=== PATIENT | male | born 1970 | race African-American/Black ===

== ENCOUNTER 2017-02-22 17:38 | Emergency (ER) | payer OTHER ==
[~2017-02-22] VITALS: Ht 182.9 cm; Wt 90.7 kg
[~2017-02-22 17:38] MED LIST: CARVEDILOL12.5 MG PO; ELIQUIS5 MG PO; FLECAINIDE ACET50 M1 PO; LIPITOR10 MG PO
[2017-02-22 17:40] VITALS: BP 165/112
[2017-02-22] MEDS ORDERED: MEN'S MULTI-VI1 EACH PO (17:42)
[2017-02-22] MEDS ORDERED: ASPIRIN325 PO (17:42)
[2017-02-22] MEDS ORDERED: PROTONIX40 M1 PO (17:43)
[2017-02-22] MEDS ORDERED: FLONASE 0.05%50 MCG NASAL (19:03)
== END 2017-02-22 19:13 | disposition home or self-care (01) ==
LOC: ER 17:38
DX: R51 Headache (principal); J06.9 Acute upper respiratory infection, unspecified; I10 Essential (primary) hypertension; K21.9 Gastro-esophageal reflux disease without esophagitis; I48.91 Unspecified atrial fibrillation; Z85.528 Personal history of other malignant neoplasm of kidney; Z77.22 Contact with and (suspected) exposure to environmental tobacco smoke (acute) (chronic); Z88.6 Allergy status to analgesic agent; Z91.040 Latex allergy status

== ENCOUNTER 2017-12-17 12:45 | Emergency (ER) | payer BC, OTHER ==
[~2017-12-17] VITALS: Ht 182.9 cm; Wt 127.0 kg
[~2017-12-17 12:45] MED LIST changes: +ASPIRIN325 PO; +FLONASE 0.05%50 MCG NASAL; +MEN'S MULTI-VI1 EACH PO; +PROTONIX40 M1 PO
[2017-12-17] MEDS ORDERED: PRADAXA150 MG PO (13:37)
[2017-12-17] MEDS ORDERED: ACETAMINOPHEN-1 EAC1 PO (13:53)
[2017-12-17] MEDS ORDERED: PREDNISONE 20 M20 MG PO (13:53)
[2017-12-17 14:55] VITALS: BP 146/86
== END 2017-12-17 14:57 | disposition home or self-care (01) ==
LOC: ER 12:45
DX: M54.40 Lumbago with sciatica, unspecified side (principal); M25.551 Pain in right hip; I10 Essential (primary) hypertension; K21.9 Gastro-esophageal reflux disease without esophagitis; I48.91 Unspecified atrial fibrillation; Z85.528 Personal history of other malignant neoplasm of kidney; F17.210 Nicotine dependence, cigarettes, uncomplicated; Z91.040 Latex allergy status

== ENCOUNTER 2017-12-28 19:03 | Emergency (ER) | payer OTHER ==
[~2017-12-28] VITALS: Ht 182.9 cm; Wt 131.5 kg
--- NOTE | ~2017-12-28 | EKG ---
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 [place] : 1970 Requested By: Manan Stevens Order Number: [id number] MD: Adelso Muir Measurements Intervals [place] Rate: 100 P: 32 PA: 159 QRS: -14 QRSD: 89 T: 10 QT: 348 QTc: 449 Interpretive Statements Sinus tachycardia Probable left atrial enlargement Probable left ventricular hypertrophy Artifact in lead(s) I,III,aVR,aVL,aVF Compared to ECG 10/25/2016 20:53:27 Atrial premature complex(es) no longer present Electronically Signed On 12-28-2017 20:42:08 CDT by Adelso Muir [email or web address] <ELECTRONICALLY SIGNED> By: Adelso Muir MD 12/28/172041 29 29 Adelso Muir MD /EPI
[~2017-12-28 19:03] MED LIST changes: +ACETAMINOPHEN-1 EAC1 PO; +PRADAXA150 MG PO; +PREDNISONE 20 M20 MG PO
[2017-12-28] MEDS ORDERED: IBUPROFEN 600600 M1 PO (20:52)
[2017-12-28 21:34] VITALS: BP 139/93
== END 2017-12-28 21:39 | disposition home or self-care (01) ==
LOC: ER 19:03
DX: S09.90XA Unspecified injury of head, initial encounter (principal); M54.2 Cervicalgia; I10 Essential (primary) hypertension; E78.5 Hyperlipidemia, unspecified; I48.91 Unspecified atrial fibrillation; K21.9 Gastro-esophageal reflux disease without esophagitis; F17.210 Nicotine dependence, cigarettes, uncomplicated; Z90.5 Acquired absence of kidney; Z85.528 Personal history of other malignant neoplasm of kidney; Z91.040 Latex allergy status; Z88.6 Allergy status to analgesic agent; Y00.XXXA Assault by blunt object, initial encounter; Y92.89 Other specified places as the place of occurrence of the external cause; Y93.89 Activity, other specified; Y99.8 Other external cause status

== ENCOUNTER 2018-01-19 19:49 | Emergency (ER) | payer BC, OTHER ==
[~2018-01-19] VITALS: Ht 180.3 cm; Wt 134.3 kg
[~2018-01-19 19:49] MED LIST changes: +IBUPROFEN 600600 M1 PO
[2018-01-19 19:51] VITALS: BP 144/113
[2018-01-19] MEDS ORDERED: NORCO 5-325 TA1 EACH PO (19:56)
[2018-01-19] MEDS ORDERED: IBUPROFEN 800800 M1 PO (19:56)
[2018-01-19] MEDS ORDERED: KEFLEX500 M1 PO (22:12)
== END 2018-01-20 00:12 | disposition home or self-care (01) ==
LOC: ER 19:49
DX: S41.111A Laceration without foreign body of right upper arm, initial encounter (principal); W25.XXXA Contact with sharp glass, initial encounter; Y93.89 Activity, other specified; Y92.89 Other specified places as the place of occurrence of the external cause; Y99.8 Other external cause status; I10 Essential (primary) hypertension; I48.91 Unspecified atrial fibrillation; K21.9 Gastro-esophageal reflux disease without esophagitis; M54.30 Sciatica, unspecified side; Z85.528 Personal history of other malignant neoplasm of kidney; F17.210 Nicotine dependence, cigarettes, uncomplicated; Z91.040 Latex allergy status; Z88.8 Allergy status to other drugs, medicaments and biological substances

== ENCOUNTER 2018-02-02 09:31 | Emergency (ER) | payer BC, OTHER ==
[~2018-02-02] VITALS: Ht 180.3 cm; Wt 134.3 kg
[~2018-02-02 09:31] MED LIST changes: +IBUPROFEN 800800 M1 PO; +KEFLEX500 M1 PO; +NORCO 5-325 TA1 EACH PO
[2018-02-02 09:41] VITALS: BP 110/87
[2018-02-02] MEDS ORDERED: NORCO 5-325 TA1 EACH PO (10:43)
== END 2018-02-02 11:10 | disposition home or self-care (01) ==
LOC: ER 09:31
DX: M76.61 Achilles tendinitis, right leg (principal); S41.111D Laceration without foreign body of right upper arm, subsequent encounter; F17.210 Nicotine dependence, cigarettes, uncomplicated; I48.91 Unspecified atrial fibrillation; I10 Essential (primary) hypertension; K21.9 Gastro-esophageal reflux disease without esophagitis; Z85.528 Personal history of other malignant neoplasm of kidney; Z90.5 Acquired absence of kidney; Z91.040 Latex allergy status; Z88.6 Allergy status to analgesic agent; X58.XXXD Exposure to other specified factors, subsequent encounter

== ENCOUNTER 2018-04-09 10:59 | Emergency (ER) | payer BC, OTHER ==
[~2018-04-09] VITALS: Ht 182.9 cm; Wt 127.5 kg
[~2018-04-09 10:59] MED LIST changes: +ASPIR 8181 MG PO
[2018-04-09] MEDS ORDERED: WELLBUTRIN SR150 MG PO (11:08)
[2018-04-09] MEDS ORDERED: NORVASC5 MG PO (11:08)
[2018-04-09] MEDS ORDERED: HYDROCODONE-AP1 EAC6 PO (12:13)
== END 2018-04-09 12:48 | disposition home or self-care (01) ==
LOC: ER 10:59
DX: M25.461 Effusion, right knee (principal); F17.210 Nicotine dependence, cigarettes, uncomplicated; I48.91 Unspecified atrial fibrillation; K21.9 Gastro-esophageal reflux disease without esophagitis; I10 Essential (primary) hypertension; Z88.6 Allergy status to analgesic agent; Z91.040 Latex allergy status; Z85.528 Personal history of other malignant neoplasm of kidney; Z90.5 Acquired absence of kidney

== ENCOUNTER 2018-04-13 12:32 | Emergency (ER) | payer BC, OTHER ==
[~2018-04-13] VITALS: Ht 182.9 cm; Wt 122.9 kg
--- NOTE | ~2018-04-13 | EKG ---
[place] [address] [facility] [email or web address] [address] ELECTROCARDIOGRAM REPORT Name: KINGLORENE Blakely Room #: [facility] Freeman#: [id number] Admission: 04/13/18 Attend Phys: Discharge: Date of : 68 Report #: [id number] THIS REPORT FOR: //name// [facility] Test Date: 2018-04-13 Test Time: 14:13:00 Pat Name: LORENE BLANCO Department: Room: Gender: M Rn Recovery: : 1970 Requested By: Julita Syed Order Number: [id number] MD: Measurements Intervals [place] Rate: 83 P: 35 ND: 186 QRS: -19 QRSD: 106 T: 6 QT: 400 QTc: 470 Interpretive Statements Sinus rhythm Probable left atrial enlargement Left ventricular hypertrophy Compared to ECG 03/16/2018 10:12:12 Left ventricular hypertrophy now present [email or web address] By: 12 141 Epiphany MD Abdelrahman /EPI
--- NOTE | ~2018-04-13 | EKG ---
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
[~2018-04-13 12:32] MED LIST changes: +HYDROCODONE-AP1 EAC6 PO; +NORVASC5 MG PO; +WELLBUTRIN SR150 MG PO
[2018-04-13 13:08] LABS: ABSOLUTE NEUTROPHILS 3.8 thou/uL (1.4-8.2); EOSINOPHILS 1.6 % (0.0-3.0); HEMATOCRIT 44.3 % (42.0-52.0); HEMOGLOBIN 15.8 gm/dL (14.0-18.0); LYMPHOCYTES 31.7 % (24.0-44.0); MCH 30.7 pg (26.0-34.0); MCHC 35.8 g/dL (28.0-37.0); MCV 85.8 fL (80.0-100.0); MONOCYTES 7.2 % (1.0-8.0); PLATELET COUNT 230 thou/uL (150-400); POLYS 58.5 % (36.0-66.0); RBC 5.17 mil/uL (4.50-6.00); RDW 15.3 % (10.5-14.5); WBC 6.4 thou/uL (4.0-11.0)
[2018-04-13 13:14] LABS: ANION GAP 11 mmol/L (7-16); BUN 16 mg/dL (7-18); CALCIUM 9.7 mg/dL (8.5-10.1); CHLORIDE 100 mmol/L (98-107); CO2 25 mmol/L (21-32); CREATININE 1.6 mg/dL (0.7-1.3); GLUCOSE 152 mg/dL (74-106); SODIUM 136 mmol/L (136-145)
[2018-04-13 13:24] LABS: ALBUMIN 4.1 g/dL (3.4-5.0); LIPASE 324 U/L (73-393); SGOT 21 U/L (15-37); SGPT 28 U/L (30-65); TOTAL BILIRUBIN 0.5 mg/dL (<0.1-1.0); TOTAL PROTEIN 8.2 g/dL (6.4-8.2); TROPONIN-I <0.06 ng/mL (<0.06)
[2018-04-13] MEDS ORDERED: NORCO 5-325 TA1 EACH PO (15:10)
== END 2018-04-13 15:38 | disposition home or self-care (01) ==
LOC: ER 12:32
PROVIDERS: Nurse Practitioner Family
DX: R07.89 Other chest pain (principal); M25.571 Pain in right ankle and joints of right foot; G89.29 Other chronic pain; E87.6 Hypokalemia; I48.91 Unspecified atrial fibrillation; I10 Essential (primary) hypertension; K21.9 Gastro-esophageal reflux disease without esophagitis; M54.30 Sciatica, unspecified side; Z90.5 Acquired absence of kidney; F17.210 Nicotine dependence, cigarettes, uncomplicated; Z88.6 Allergy status to analgesic agent; Z91.040 Latex allergy status; Z88.8 Allergy status to other drugs, medicaments and biological substances

== ENCOUNTER 2018-06-10 14:44 | Emergency (ER) | payer BC, OTHER ==
[~2018-06-10] VITALS: Ht 182.9 cm; Wt 122.9 kg
--- NOTE | ~2018-06-10 | EKG ---
[address] [employer] [place] [address] ELECTROCARDIOGRAM REPORT Name: LORENE BLANCO Room #: [facility] Pete#: [id number] Admission: 06/10/18 Attend Phys: Discharge: 06/10/18 Date of : 68 Report #: [id number] THIS REPORT FOR: //name// [facility] ED Test Date: 2018-06-10 Test Time: 16:11:06 Pat Name: LORENE BLANCO Department: Room: Gender: Wool Tamper: MELISSA : 1970 Requested By: Julita Syed Order Number: [id number] MD: Carlitos Barreto Measurements Intervals [place] Rate: 87 P: 28 [place]: 176 QRS: -6 QRSD: 101 T: 4 QT: 377 QTc: 454 Interpretive Statements Sinus rhythm nonspecific T-wave abnormalities Compared to ECG 04/13/2018 14:13:00 Left ventricular hypertrophy no longer present Electronically Signed On 06-11-2018 10:23:36 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
[2018-06-10 15:19] LABS: ABSOLUTE NEUTROPHILS 3.5 thou/uL (1.4-8.2); EOSINOPHILS 2.2 % (0.0-3.0); HEMATOCRIT 44.4 % (42.0-52.0); HEMOGLOBIN 15.4 gm/dL (14.0-18.0); LYMPHOCYTES 33.8 % (24.0-44.0); MCH 30.2 pg (26.0-34.0); MCHC 34.8 g/dL (28.0-37.0); MCV 86.8 fL (80.0-100.0); MONOCYTES 7.2 % (1.0-8.0); PLATELET COUNT 221 thou/uL (150-400); POLYS 55.8 % (36.0-66.0); RBC 5.11 mil/uL (4.50-6.00); RDW 15.1 % (10.5-14.5); WBC 6.4 thou/uL (4.0-11.0)
[2018-06-10 15:26] LABS: CALCIUM 9.6 mg/dL (8.5-10.1); CREATININE 1.4 mg/dL (0.7-1.3); POTASSIUM 3.4 mmol/L (3.5-5.1)
[2018-06-10 15:31] LABS: ALBUMIN 3.9 g/dL (3.4-5.0); TOTAL BILIRUBIN 0.3 mg/dL (<0.1-1.0); TOTAL PROTEIN 8.1 g/dL (6.4-8.2)
[2018-06-10 17:58] LABS: URINE BILIRUBIN NEGATIVE (Negative); URINE BLOOD NEGATIVE (Negative); URINE CLARITY CLEAR; URINE COLOR YELLOW; URINE GLUCOSE-RANDOM* NEGATIVE (Negative); URINE KETONES NEGATIVE (Negative); URINE LEUKOCYTES-REFLEX NEGATIVE (Negative); URINE NITRITE-REFLEX NEGATIVE (Negative); URINE PROTEIN (DIPSTICK) NEGATIVE (Negative); URINE UROBILINOGEN 0.2 E.U./dl (0.2-1.0)
[2018-06-10] MEDS ORDERED: PRILOSEC 20 MG20 MG PO (18:11)
[2018-06-10] MEDS ORDERED: ANUSOL-HC25 MG RECTAL (18:11)
[2018-06-10 18:28] VITALS: BP 111/85
== END 2018-06-10 18:29 | disposition home or self-care (01) ==
LOC: ER 14:44
PROVIDERS: Nurse Practitioner Family
DX: K62.5 Hemorrhage of anus and rectum (principal); R10.13 Epigastric pain; I48.91 Unspecified atrial fibrillation; I10 Essential (primary) hypertension; K21.9 Gastro-esophageal reflux disease without esophagitis; F17.200 Nicotine dependence, unspecified, uncomplicated; Z93.3 Colostomy status; Z86.711 Personal history of pulmonary embolism; Z88.5 Allergy status to narcotic agent; Z88.6 Allergy status to analgesic agent; Z91.040 Latex allergy status

== ENCOUNTER 2018-06-21 19:38 | Emergency (ER) | payer BC, OTHER ==
[~2018-06-21] VITALS: Ht 182.9 cm; Wt 122.9 kg
--- NOTE | ~2018-06-21 | EKG ---
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: [place] : 1970 Requested By: Jayden Laguna Order Number: [id number] MD: Adelso Muir Measurements Intervals [place] Rate: 96 P: 23 IA: 171 QRS: -12 QRSD: 95 T: 16 QT: 359 QTc: 454 Interpretive Statements Sinus rhythm Probable left atrial enlargement Abnormal R-wave progression, late transition Compared to ECG 06/10/2018 16:11:06 No significant changes Electronically Signed On 06-21-2018 21:12:47 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
[~2018-06-21 19:38] MED LIST changes: +ANUSOL-HC25 MG RECTAL; +PRILOSEC 20 MG20 MG PO
[2018-06-21 19:58] LABS: URINE BILIRUBIN NEGATIVE (Negative); URINE BLOOD TRACE (Negative); URINE CLARITY CLEAR; URINE COLOR YELLOW; URINE GLUCOSE-RANDOM* NEGATIVE (Negative); URINE KETONES NEGATIVE (Negative); URINE LEUKOCYTES-REFLEX NEGATIVE (Negative); URINE NITRITE-REFLEX NEGATIVE (Negative); URINE PROTEIN (DIPSTICK) NEGATIVE (Negative); URINE SPECIFIC GRAVITY 1.025 (1.005-1.035); URINE UROBILINOGEN 0.2 E.U./dl (0.2-1.0)
[2018-06-21 21:25] LABS: ABSOLUTE NEUTROPHILS 4.3 thou/uL (1.4-8.2); BASOPHILS 1.1 % (0.0-2.0); HEMATOCRIT 43.4 % (42.0-52.0); HEMOGLOBIN 15.1 gm/dL (14.0-18.0); MCH 30.3 pg (26.0-34.0); MCHC 34.7 g/dL (28.0-37.0); MCV 87.2 fL (80.0-100.0); MONOCYTES 7.8 % (1.0-8.0); PLATELET COUNT 234 thou/uL (150-400); POLYS 57.1 % (36.0-66.0); RBC 4.98 mil/uL (4.50-6.00); WBC 7.6 thou/uL (4.0-11.0)
[2018-06-21] MEDS ORDERED: K-DUR10 MEQ PO (21:37)
[2018-06-21 21:38] LABS: ANION GAP 10 mmol/L (7-16); BUN 21 mg/dL (7-18); CALCIUM 9.7 mg/dL (8.5-10.1); CHLORIDE 104 mmol/L (98-107); CO2 25 mmol/L (21-32); CREATININE 1.5 mg/dL (0.7-1.3); GLUCOSE 103 mg/dL (74-106); POTASSIUM 3.6 mmol/L (3.5-5.1); SODIUM 139 mmol/L (136-145)
[2018-06-21 21:41] LABS: APTT 28.2 Seconds (24.5-32.8); INR 1.1; PROTIME 11.4 Seconds (9.3-11.4)
[2018-06-21 21:48] LABS: ALBUMIN 3.9 g/dL (3.4-5.0); LIPASE 322 U/L (73-393); SGOT 20 U/L (15-37); SGPT 32 U/L (30-65); TOTAL BILIRUBIN 0.3 mg/dL (<0.1-1.0); TOTAL PROTEIN 7.8 g/dL (6.4-8.2); TROPONIN-I <0.06 ng/mL (<0.06)
[2018-06-21] MEDS ORDERED: LEVSIN0.125 MG PO (22:32)
[2018-06-21] MEDS ORDERED: RECTICARE30 GM TOP (22:32)
[2018-06-21 23:17] VITALS: BP 125/84
== END 2018-06-21 23:15 | disposition home or self-care (01) ==
LOC: ER 19:38
PROVIDERS: Emergency Medicine
DX: K64.9 Unspecified hemorrhoids (principal); K92.1 Melena; I48.91 Unspecified atrial fibrillation; I10 Essential (primary) hypertension; K21.9 Gastro-esophageal reflux disease without esophagitis; Z90.5 Acquired absence of kidney; Z85.528 Personal history of other malignant neoplasm of kidney; F17.210 Nicotine dependence, cigarettes, uncomplicated; Z88.6 Allergy status to analgesic agent; Z91.040 Latex allergy status; Z88.8 Allergy status to other drugs, medicaments and biological substances

== ENCOUNTER → 2018-11-09 | Outpatient (CLI) | payer BC, OTHER ==
[~2018-11-09] MED LIST changes: +K-DUR10 MEQ PO; +LEVSIN0.125 MG PO; +RECTICARE30 GM TOP
== END ==
LOC: ULTRA 12:24 → CAT 12:24
DX: R10.11 Right upper quadrant pain (principal); R07.9 Chest pain, unspecified; M47.814 Spondylosis without myelopathy or radiculopathy, thoracic region; Z90.5 Acquired absence of kidney; Z86.718 Personal history of other venous thrombosis and embolism